=== PATIENT | female | born 1965 | race Caucasian/White ===

== ENCOUNTER 2024-01-03 09:08 | Outpatient (OUT) | payer BC, SELFPAY ==
[2024-01-03 10:12] LABS: Alanine Aminotransferase 39 U/L (14-59); Albumin Globulin Ratio 1.2; Albumin Level 3.5 g/dL (3.4-5.0); Alkaline Phosphatase 102 U/L (46-116); Anion Gap 11.6; Aspartate Amino Transferase 19 U/L (15-37); Bilirubin Total 0.5 mg/dL (0.2-1.0); Carbon Dioxide 28.6 mmol/L (21.0-32.0); Chloride 106 mmol/L (98-107); Chol HDL Ratio 5.4; Cholesterol 239 mg/dL (<=200); Estimated GFR (African America >60 (>=60); Estimated GFR (Non-African Ame 57 (>=60); Free T3 2.45 pg/mL (2.18-3.98); Glucose 102 mg/dL (74-106); HDL Cholesterol 44 mg/dL (40-60); Potassium 4.2 mmol/L (3.5-5.1); Sodium 142 mmol/L (136-145); Thyroid Stimulating Hormone 0.889 uIU/mL (0.358-3.740); Total Protein 6.5 g/dL (6.4-8.2); Triglycerides 196 mg/dL (<=150); VLDL CHOLESTEROL 39.2 mg/dL
[2024-01-03 10:40] LABS: Estimated Average Glucose 117 mg/dL; Glycohemoglobin A1C 5.7 % (4.5-6.2)
[2024-01-03 10:41] LABS: Basophils Percent Auto 0.7 % (0.2-2.0); Eosinophils Absolute Auto 0.1 10^3/uL (0.0-0.7); Eosinophils Percent Auto 2.2 % (0.9-7.0); Hematocrit 41.5 % (36.0-48.0); Immature Granulocytes Abs Auto 0.05 10^3/uL (0.00-0.03); Immature Granulocytes Pct Auto 1.1 % (0.0-0.5); Lymphocytes Absolute Auto 1.5 10^3/uL (1.2-3.8); Lymphocytes Percent Auto 33.6 % (20.5-60.0); Mean Corpuscular HGB Conc 31.3 g/dL (29.9-35.2); Mean Corpuscular Hemoglobin 29.1 pg (26.7-34.0); Mean Platelet Volume 10.5 fL (9.5-13.5); Monocytes Absolute Auto 0.4 10^3/uL (0.3-0.8); Monocytes Percent Auto 8.6 % (1.7-12.0); Neutrophils Absolute Auto 2.5 10^3/uL (1.4-6.5); Neutrophils Percent Auto 53.8 % (43.0-75.0); Platelet Count 200 10^3/uL (150-450); Red Blood Count 4.46 10^6/uL (4.20-5.40); Red Cell Distribution Width 13.1 % (11.0-15.0); White Blood Count 4.6 10^3/uL (4.0-11.0)
== END 2024-01-03 09:09 | disposition home or self-care (01) ==
LOC: LAB 09:10
PROVIDERS: PCP Family Medicine; Visit Provider Family Medicine
DX: Z00.00 Encounter for general adult medical examination without abnormal findings (principal); R53.83 Other fatigue
CPT/HCPCS: 36415; 80053; 80061; 83036; 84436; 84443; 84481; 85025

== ENCOUNTER 2024-06-15 14:04 | Outpatient (OUT) | payer BC, SELFPAY ==
--- NOTE | 2024-06-15 14:14 | CT_ITS ---
The [address] [address] Patient Name: JOBY KUHN MRN: [id number] date: 1965 Sex: F Assigned Patient Location: LAB Current Patient Location: LAB Accession/Order Number: [id number] Exam Date: 06/15/2024 14:30 Report Date: 06/15/2024 15:22 At the request of: CHRISTI RAND Procedure: CT angio chest EXAMINATION: CT angio chest HISTORY: COVID 19, Dyspnea On Exertion COMPARISON: No relevant comparison available. TECHNIQUE: Multi-planar CT images were created with IV contrast. Axial, Coronal, and Sagittal images. Dose reduction techniques were achieved by using automated exposure control and/or adjustment of mA and/or kV according to patient size and/or use of iterative reconstruction technique. 3-D reconstruction was performed on a separate workstation. FINDINGS: VASCULATURE: No pulmonary embolism or abnormal opacity. LUNGS: No visible pulmonary disease. PLEURA: No mass, effusion, or pneumothorax. MIRIAM: No mass or adenopathy. MEDIASTINUM: No mass or adenopathy. CARDIAC: No enlargement, pericardial effusion, or pericardial thickening. AORTA: No aneurysm or dissection. CHEST WALL: No mass or axillary adenopathy. BONES: No bone lesion or fracture. LIMITED ABDOMEN: No suspicious findings. Limited images of the upper abdomen. OTHER: Negative. CT/CT angio chest IMPRESSION: 1. No pulmonary embolism. 2. No pulmonary infiltrates or acute/suspicious findings to account for patient's symptoms. Electronically authenticated by: ABEAN WARNER Date: 06/15/2024 15:22
[2024-06-15 14:21] LABS: Estimated GFR (African America >60 (>=60); Estimated GFR (Non-African Ame 50 (>=60)
== END 2024-06-15 14:05 | disposition home or self-care (01) ==
LOC: LAB 14:05
PROVIDERS: PCP Family Medicine; Visit Provider Family Medicine
DX: Z01.812 Encounter for preprocedural laboratory examination (principal); Z01.818 Encounter for other preprocedural examination; U07.1 COVID-19; R06.09 Other forms of dyspnea
CPT/HCPCS: 36415; 71275; 82565; Q9967

== ENCOUNTER 2025-01-20 19:50 | Observation (INO) | payer BC, SELFPAY ==
[2025-01-20 19:53] VITALS: BP 172/98; PULSE 68; TEMP 36.6; O2SAT 73; BMI 35.7
--- NOTE | 2025-01-20 20:12 | ED_ITS ---
HPI - Chest Pain General Chief Complaint: Chest Pain Stated Complaint: CHEST PAINS Time Seen by Provider: 01/20/25 20:11 Source: patient Mode of arrival: Wheelchair Limitations: no limitations History of Present Illness HPI narrative: Lightheaded and dizzy last night. She felt like she was going to pass out. She was rubbing her husbands legs. Head spinning and arms were numb. This lasted 10 minutes. Never happened before. She said it went away and she thought she was alright. Just before 19:00 felt pressure in her center of her chest. Bra strap felt like it was choking her. Pain pressure-like at 8/10. Pain in the right arm and left jaw. Fingers are tingly. Short of breath. Pain also in the middle of shoulder blades and right shoulder. 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 No daily ASA. Headache, top of head was going to explode. Currently the headache is a 2/10. No medications SURVEYOR'S ASSISTANT No pain with eating PCP: Dr. Ohara Combatant Diver Officer: none Stress test: a couple years ago Nuclear stess test a couple years ago at the [facility], normal Risk: HTN, maternal and paternal grandmothers with CAD. SxHx: cholecystectomy, appendectomy , tonsillectomy, hysterectomy FMhx: mom breast cancer and thyroid issues. no smoke or vape Related Data Home Medications ?Medication ?Instructions ?Recorded ?Confirmed lisinopril 40 mg tablet mg 01/20/25 Allergies Allergy/AdvReac Type Severity Reaction Status Date / Time hydrochlorothiazide Allergy Severe Weakness Verified 01/20/25 20:09 hydromorphone (From Dilaudid) Allergy Severe Anaphylaxis Verified 01/20/25 20:09 tree nut Allergy Severe Anaphylaxis Verified 01/20/25 20:09 Review of Systems ROS Status of ROS 10 or more systems reviewed and unremark able except as noted in history and below [facility] PFS Social History Little interest or pleasure in doing things: not at all Feeling down, depressed, or hopeless: not at all Exam Narrative Exam Narrative: Prior to examining the patient, I have washed with hospital approved and provided Antiseptic Hand Product Manager [employer] and have also applied gloves.? Prior to touching the patient, I asked for consent to examine the patient.? General: Alert and oriented, well nourished, mild distress. Eye: PERRL, EOMI, normal conjunctiva. HENT: Normocephalic, normal hearing, moist oral mucosa, no scleral icterus, no sinus tenderness. Neck: Supple, non-tender, no carotid bruits, no JVD, no lymphadenopathy. Lungs: Clear to auscultation and percussion, non-labored respiration. Heart: Normal rate, regular rhythm, +2/6 murmur, gallop or edema. Abdomen: Soft, non-tender, non-distended, normal bowel sounds, no masses. Musculoskeletal: Normal range of motion and strength, no tenderness or swelling. Skin: Skin is warm, dry and pink, no rashes or lesions. Neurologic: Awake, alert, and oriented X3, CN II-XII intact. Psychiatric: Cooperative, appropriate mood and affect.? Following the conclusion of the examination, I have washed my hands thoroughly after removing examination gloves. Constitutional Vital Signs, click to edit/add: Last Vital Signs Temp 97.8 F 01/20/25 19:53 Pulse 68 01/20/25 19:53 Resp 17 01/20/25 19:53 BP 172/98 H 01/20/25 19:53 Pulse Ox 100 01/20/25 20:16 O2 Del Method Room Air 01/20/25 20:16 Course Course Hospital Course: The patient is a 59-year-old female presenting to the emergency department for chest pain that radiates to her right arm and the middle of her back. It was associated with some shortness of breath and nausea. Patient was having an excessive amount of pain. She was given morphine for analgesic management. She was also given aspirin. CBC revealed no evidence of anemia or leukocytosis. Comp is metabolic panel revealed no electrolyte, kidney, or liver dysfunction. Troponin x 2 high- sensitivity were negative. Patient had a CT a of the chest which revealed no pulmonary embolism, no aneurysm, or no dissection. Reevaluation(s) Reevaluation #1: Patient's symptoms have improved. She only feels mild discomfort in her right arm at this time. She rates it at a 2 out of 10. Time: 23:13 Consultations Consultation #1: Hospital is nurse practitioner called and reviewed the case in the. She did agree to accept the observation admission of the patient for chest. Time: 23:13 Vital Signs Vital signs: Vital Signs Temperature 97.8 F 01/20/25 19:53 Pulse Rate 68 01/20/25 19:53 Respiratory Rate 17 01/20/25 19:53 Blood Pressure 172/98 H 01/20/25 19:53 Pulse Oximetry 73 L 01/20/25 19:53 Oxygen Delivery Method Room Air 01/20/25 19:53 Temperature 97.8 F 01/20/25 19:53 Pulse Rate 68 01/20/25 19:53 Respiratory Rate 17 01/20/25 19:53 Blood Pressure 172/98 H 01/20/25 19:53 Pulse Oximetry 100 01/20/25 20:16 Oxygen Delivery Method Room Air 01/20/25 20:16 MDM - Chest Pain MDM Narrative Medical decision making narrative: Patient is a 59-year-old female presenting to the emergency department for chest pain. The patient's heart score 5 points. Patient was seen for analgesic management. Patient appears nontoxic and in no acute distress but due to her symptoms we will admit her to the hospital for observation. Differential Diagnosis Differential diagnosis: Likely pneumothorax, stable angina, unstable angina pectoris, atypical chest pain, st elevation myocardial infarction, costochondritis, chest pain and biliary colic Medical Records Data Attestation: I reviewed the patient's medical records. Lab Data Attestation: I reviewed the patient's lab results. Labs: Lab Results 01/20/25 01/20/25 Range/Units 20:05 22:10 WBC 7.0 (4.0-11.0) 10^3/uL RBC 4.59 (4.20-5.40) 10^6/uL Hgb 13.8 (12.0-16.0) g/dL Hct 41.9 (36.0-48.0) % MCV 91.3 (81.0-99.0) fL MCH 30.1 (26.7-34.0) pg MCHC 32.9 (29.9-35.2) g/dL RDW 13.5 (11.0-15.0) % Plt Count 244 (150-450) 10^3/uL MPV 10.3 (9.5-13.5) fL Neut % (Auto) 54.9 (43.0-75.0) % Lymph % (Auto) 34.3 (20.5-60.0) % Anderson % (Auto) 8.7 (1.7-12.0) % Eos % (Auto) 1.1 (0.9-7.0) % Baso % (Auto) 0.6 (0.2-2.0) % Neut # (Auto) 3.8 (1.4-6.5) 10^3/uL Lymph # (Auto) 2.4 (1.2-3.8) 10^3/uL Anderson # (Auto) 0.6 (0.3-0.8) 10^3/uL Eos # (Auto) 0.1 (0.0-0.7) 10^3/uL Baso # (Auto) 0.0 (0.0-0.1) 10^3/uL Abs Immat Gran (auto) 0.03 (0.00-0.03) 10^3/uL Imm/Tot Granulo (auto) 0.4 (0.0-0.5) % Sodium 137 (136-145) mmol/L Potassium 3.8 (3.5-5.1) mmol/L Chloride 103 (98-107) mmol/L Carbon Dioxide 28.2 (21.0-32.0) mmol/L Anion Gap 9.6 BUN 18.0 (7.0-18.0) mg/dL Creatinine 1.02 (0.55-1.02) mg/dL Est GFR ( Amer) >60 (>=60 mL/min/1.73m^2) Est GFR (Non-Af Amer) 55 L (>=60 mL/min/1.73m^2) BUN/Creatinine Ratio 17.6 Glucose 114 H (74-106) mg/dL Calcium 9.1 (8.5-10.1) mg/dL Total Bilirubin 0.4 (0.2-1.0) mg/dL AST 21 (15-37) U/L ALT 50 (14-59) U/L Alkaline Phosphatase 131 H (46-116) U/L Troponin I High Sens 5.9 5.8 (4.0-51.3) pg/mL Total Protein 7.1 (6.4-8.2) g/dL Albumin 4.1 (3.4-5.0) g/dL Globulin 3.0 g/dL Albumin/Globulin Ratio 1.4 Lipase 25.0 (16.0-77.0) U/L Imaging Data CT scan - chest: Attestation: I have reviewed the pertinent imaging results. Radiologist's impression: Board-certified radiologist revealed no evidence for pulmonary embolism there is no filling defect of the pulmonary arteries to suggest PE. The thoracic aorta appears in normal caliber. Heart was mildly enlarged. No pericardial or pleural effusion. No pneumothorax. No pulmonary consolidation. No acute osseous abnormality evident. ECG Data Attestation: I personally reviewed and interpreted this ECG as follows: ECG interpretation date: 01/20/25 ECG interpretation time: 20:01 Interpretation: Patient's EKG reveals a sinus rhythm with a ventricular of 71 bpm. The TX interval and QRS duration within normal is. QTc is not prolonged. [place] is normal. No evidence of ST segment elevation or depression suggestive of infarction or ischemia. Summary: Normal EKG. Discharge Plan Discharge Chief Complaint: Chest Pain Clinical Impression: Chest pain Patient Disposition: Admitted as Observation Time of Disposition Decision: 23:20 Condition: Fair
[2025-01-20 20:16] VITALS: O2SAT 100
--- NOTE | 2025-01-20 20:25 | ECG_ITS ---
The [facility] Test Date: 2025-01-20 Pat Name: JOBY KUHN Department: Room: - Gender: Female Pharmacognosist: : 1965 Requested By: [id number] Order Number: [id number] Reading MD: FAUSTINO ALEMAN M.D. Measurements Intervals [place] Rate: 71 P: 270 [place]: 136 QRS: -23 QRSD: 84 T: 60 QT: 380 QTc: 403 Interpretive Statements ECTOPIC ATRIAL RHYTHM 7202 Moderate left axis deviation 9140 abnormal rhythm ECG No previous ECG available for comparison Electronically Signed On 01-21-2025 7:46:05 EDT by FAUSTINO ALEMAN M.D.
[2025-01-20 20:31] LABS: Basophils Percent Auto 0.6 % (0.2-2.0); Eosinophils Absolute Auto 0.1 10^3/uL (0.0-0.7); Eosinophils Percent Auto 1.1 % (0.9-7.0); Hematocrit 41.9 % (36.0-48.0); Hemoglobin 13.8 g/dL (12.0-16.0); Immature Granulocytes Abs Auto 0.03 10^3/uL (0.00-0.03); Immature Granulocytes Pct Auto 0.4 % (0.0-0.5); Lymphocytes Absolute Auto 2.4 10^3/uL (1.2-3.8); Lymphocytes Percent Auto 34.3 % (20.5-60.0); Mean Corpuscular HGB Conc 32.9 g/dL (29.9-35.2); Mean Corpuscular Hemoglobin 30.1 pg (26.7-34.0); Mean Corpuscular Volume 91.3 fL (81.0-99.0); Mean Platelet Volume 10.3 fL (9.5-13.5); Monocytes Absolute Auto 0.6 10^3/uL (0.3-0.8); Monocytes Percent Auto 8.7 % (1.7-12.0); Neutrophils Absolute Auto 3.8 10^3/uL (1.4-6.5); Neutrophils Percent Auto 54.9 % (43.0-75.0); Platelet Count 244 10^3/uL (150-450); Red Blood Count 4.59 10^6/uL (4.20-5.40); Red Cell Distribution Width 13.5 % (11.0-15.0)
[2025-01-20 20:44] LABS: Alanine Aminotransferase 50 U/L (14-59); Albumin Globulin Ratio 1.4; Albumin Level 4.1 g/dL (3.4-5.0); Alkaline Phosphatase 131 U/L (46-116); Anion Gap 9.6; Aspartate Amino Transferase 21 U/L (15-37); BUN Creatinine Ratio 17.6; Bilirubin Total 0.4 mg/dL (0.2-1.0); Calcium 9.1 mg/dL (8.5-10.1); Carbon Dioxide 28.2 mmol/L (21.0-32.0); Chloride 103 mmol/L (98-107); Estimated GFR (African America >60 (>=60 mL/min/1.73m^2); Estimated GFR (Non-African Ame 55 (>=60 mL/min/1.73m^2); Glucose 114 mg/dL (74-106); Potassium 3.8 mmol/L (3.5-5.1); Sodium 137 mmol/L (136-145); Total Protein 7.1 g/dL (6.4-8.2)
[2025-01-20] MEDS: MORPHINE SULFATE 4 MG/ML VIAL IV (20:44)
[2025-01-20] MEDS: ASPIRIN 81 MG TAB.CHEW 324 MG PO (20:44)
[2025-01-20] MEDS: ONDANSETRON PF 4 MG/2 ML VIAL IV (20:44)
[2025-01-20 20:45] LABS: Troponin I High Sensitivity 5.9 pg/mL (4.0-51.3)
[2025-01-20 22:41] LABS: Troponin I High Sensitivity 5.8 pg/mL (4.0-51.3)
[2025-01-20 23:11] VITALS: BP 154/88; PULSE 59; TEMP 36.5; O2SAT 98
[2025-01-21] VITALS (11 sets, daily range): BP systolic 100–120; BP diastolic 62–78; PULSE 58–84; TEMP 36.4–36.8; O2SAT 92–98; BMI 36.5
[2025-01-21] MEDS: ACETAMINOPHEN 325 MG TABLET 650 MG PO ×2 (02:08→06:12)
--- NOTE | 2025-01-21 06:00 | ECG_ITS ---
The [facility] Test Date: 2025-01-21 Pat Name: JOBY KUHN Department: Room: [facility] Gender: Female Chief Nurse Anesthetist: : 1965 Requested By: [id number] Order Number: [id number] Reading MD: FAUSTINO ALEMAN M.D. Measurements Intervals [place] Rate: 64 P: -1 GA: 182 QRS: -27 QRSD: 88 T: 61 QT: 419 QTc: 433 Interpretive Statements SINUS RHYTHM BORDERLINE LEFT AXIS DEVIATION [QRS AXIS < -20] Compared to ECG 01/20/2025 20:00:39 Ectopic atrial rhythm no longer present Electronically Signed On 01-21-2025 7:50:56 EDT by FAUSTINO ALEMAN M.D.
[2025-01-21 06:17] LABS: Hematocrit 38.2 % (36.0-48.0); Hemoglobin 12.2 g/dL (12.0-16.0); Mean Corpuscular HGB Conc 31.9 g/dL (29.9-35.2); Mean Corpuscular Hemoglobin 29.4 pg (26.7-34.0); Mean Platelet Volume 10.1 fL (9.5-13.5); Platelet Count 195 10^3/uL (150-450); Red Blood Count 4.15 10^6/uL (4.20-5.40); Red Cell Distribution Width 13.6 % (11.0-15.0); White Blood Count 5.2 10^3/uL (4.0-11.0)
[2025-01-21 06:33] LABS: Estimated Average Glucose 120 mg/dL; Glycohemoglobin A1C 5.8 % (4.5-6.2)
[2025-01-21 06:37] LABS: Troponin I High Sensitivity 7.6 pg/mL (4.0-51.3)
[2025-01-21 06:42] LABS: Chol HDL Ratio 5.4; Cholesterol 209 mg/dL (<=200); HDL Cholesterol 39 mg/dL (40-60); Thyroid Stimulating Hormone 1.505 uIU/mL (0.358-3.740); Triglycerides 217 mg/dL (<=150); VLDL CHOLESTEROL 43.4 mg/dL
--- NOTE | 2025-01-21 07:00 | CA_ITS ---
Patient Name: JOBY KUHN MR#: [id number] : 1965 Exam Date: 01/21/2025 Ordering Doctor: RUDOLPH HARMON ECHOCARDIOGRAM REPORT PROCEDURE: CA ECHO DOPPLER COMPLETE INDICATIONS: Chest pain COMPARISON: None. DESCRIPTION: COMPLETE ECHOCARDIOGRAM Real-time transthoracic echocardiography with 2D, M-mode, spectral and color flow Doppler performed. QUALITY: Technical quality was good. LEFT VENTRICLE: Normal chamber size. Mild concentric left ventricular hypertrophy. Normal systolic function. LV EF: Normal left ventricular ejection fraction, (>55%). DIASTOLIC: Diastolic function is indeterminate. ATRIAL SEPTUM: LEFT ATRIUM: Normal chamber size. RIGHT ATRIUM: Normal chamber size. RIGHT VENTRICLE: Mild chamber dilatation. Normal right ventricular systolic function. TRICUSPID VALVE: Normal mobility and thickness. No stenosis with mild regurgitation. No evidence of pulmonary hypertension. RVSP 33 mmHg MITRAL VALVE: Normal mobility and thickness. No evidence of mitral valve stenosis. Mild mitral annular calcification. No mitral regurgitation. AORTIC VALVE: Normal trileaflet appearance. Mildly calcified aortic valve. Normal leaflet mobility. No evidence of aortic valve stenosis. No aortic regurgitation. AORTIC ROOT: Normal diameter and appearance, measuring 3.2 cm. Ascending aorta is normal in size, measuring 2.8 cm. PULMONIC VALVE: Normal thickness and mobility. No stenosis. Trivial regurgitation. PERICARDIUM: No evidence of pericardial effusion. IVC: IVC is normal in size, does not fully collapse. PLEURA: CONCLUSION: 1. Mild concentric left ventricular hypertrophy with normal systolic function. Estimated LVEF is 55 to 60%. 2. Mildly dilated right ventricle with normal systolic function. 3. Mild tricuspid regurgitation. 4. Normal right-sided pressures. 5. No pericardial effusion. Adult Echocardiography Procedure Report Left Ventricle LVEDD (3.7 - 5.6 cm): 4.33 cm LVESD (2.2 - 4.0 cm): 2.67 cm LVIVS thickness (0.6 - 1.2 cm): 1.27 cm LVPW thickness (0.5 - 1.0 cm): 1.29 cm e': 0.08 m/s E - e': 10.43 LVOT Max Gradient: 2.25 mm[Hg] LVOT Area (cm2): 0.75 m/s Peak Velocity (LVOT): 0.75 m/s Mean Velocity (LVOT): 0.50 m/s LVOT Diameter 2.10 cm Left Atrium LA Volume Index (2D A2C): 26.83 ml/m2 Left Atrium Systolic Dimension: 4.05 cm Mitral Valve MV E to A Ratio: 1.31 Mitral Valve A-Wave Peak Velocity: 0.61 m/s Mitral Valve E-Wave Peak Velocity: 0.80 m/s Right Ventricle Aorta AO Root Diam: 3.23 cm Ascending Ao Diam: 2.79 cm Aortic Valve AoV Area (Peak Dixon): 2.19 cm2, 2.19 cm2 AoV Area (VTI): 2.20 cm2, 2.20 cm2 Peak Velocity(Antegrade Flow): 1.19 m/s Peak Gradient(Antegrade Flow): 5.68 mm[Hg] Mean Velocity(Antegrade Flow): 0.83 m/s Mean Gradient(Antegrade Flow): 3.11 mm[Hg] Velocity Time Integral: 27.42 cm Tricuspid Valve Peak Velocity (Regurgitant Flow): 2.50 m/s Pulmonic Valve Mean Gradient: 1.82 mm[Hg] Mean Velocity: 0.64 m/s Peak Velocity: 0.91 m/s, 0.82 m/s Peak Gradient: 2.70 mm[Hg], 3.31 mm[Hg] Right Atrium Right Atrium Systolic Pressure: 57.48 ml, 57.48 ml Dictated by: Tony Gracia M.D. on 01/21/2025 at 13:32 Approved by: Tony Gracia M.D. on 01/21/2025 at 13:36
--- NOTE | 2025-01-21 08:18 | P.HP_ITS ---
HPI H&P: HPI History of Present Illness Chief complaint: CHEST PAIN Narrative: Patient had an episode the day before but lasted about 10 minutes where she just felt lightheaded and some heaviness to and heaviness to her arms but no chest pain then, yesterday had an episode and then, yesterday had an episode last about an hour, chest pressure, radiating to back, a little bit of nausea, no diaphoresis, when I discussed with patient has had little she has had little episodes of this increasing over the last few weeks, but anxiety has been elevated also blood pressure at home systolic has been okay but the diastolics been in the 90s, currently symptom-free Opioid HPI Opioid Management Most Recent Pain and Opioid Data: Last Pain Scale 3 Today, 06:12 Last Pain Assessment Today, 01:00 Last ORT Total Score 1 Today, 00:51 Last ORT Risk Category Low Risk Today, 00:51 Review of Systems ROS Status of ROS 10 or more systems reviewed and unremark able except as noted in history and below PFSH PFSH Social History Highest level of school completed/degree received: Bachelor's degree Little interest or pleasure in doing things: not at all Feeling down, depressed, or hopeless: not at all Meds Home Medications and Allergies Home Medications ?Medication ?Instructions ?Recorded ?Confirmed ?Type lisinopril 40 mg tablet 40 mg PO DAILY 01/20/2502/10 History desvenlafaxine succinate 50 mg 50 mg PO DAILY 01/21/25 01/21/25 History tablet,extended release 24 hr lansoprazole 30 mg capsule,delayed 30 mg PO DAILY 02/1001/21/25 History release Allergies Allergy/AdvReac Type Severity Reaction Status Date / Time hydrochlorothiazide Allergy Severe Weakness Verified 01/20/25 20:09 hydromorphone (From Dilaudid) Allergy Severe Anaphylaxis Verified 01/20/25 20:09 tree nut Allergy Severe Anaphylaxis Verified 01/20/25 20:09 Exam Constitutional Vital Signs, click to edit/add: Last Vital Signs Temp 97.7 F 01/21/25 06:10 Pulse 81 01/21/25 07:52 Resp 18 01/21/25 06:10 BP 120/78 01/21/25 06:10 Pulse Ox 96 01/21/25 06:10 O2 Del Method Room Air 01/21/25 06:10 Documenting provider has reviewed patient's vital signs: yes Common normals: no apparent distress Chest Common normals: inspection of chest normal and palpation of chest normal Respiratory Common normals: normal respiratory effort, no retractions, no use of accessory muscles and clear to auscultation bilaterally Cardio Common normals: regular rate, regular rhythm and no murmurs GI Common normals: Normal to inspection, nondistended, normoactive bowel sounds present, soft to palpation and non-tender Extremity Common normals: normal to inspection, full ROM and no clubbing, cyanosis or edema Results Labs Labs: Short CBC 01/20/25 01/21/25 Range/Units 20:05 06:01 WBC 7.0 5.2 (4.0-11.0) 10^3/uL Hgb 13.8 12.2 (12.0-16.0) g/dL Hct 41.9 38.2 (36.0-48.0) % Plt Count 244 195 (150-450) 10^3/uL BMP 01/20/25 20:05 Sodium 137 Potassium 3.8 Chloride 103 Carbon Dioxide 28.2 BUN 18.0 Creatinine 1.02 Glucose 114 H Calcium 9.1 Liver Function 01/20/25 Range/Units 20:05 Total Bilirubin 0.4 (0.2-1.0) mg/dL AST 21 (15-37) U/L ALT 50 (14-59) U/L Alkaline Phosphatase 131 H (46-116) U/L Albumin 4.1 (3.4-5.0) g/dL Assessment and Plan Assessment and Plan (1) Hypertension: (2) History of cholecystectomy: (3) Generalized anxiety disorder: (4) Hypercholesterolemia: (5) Hypertriglyceridemia: (6) Hypertensive urgency: Plan Admission findings: Patient was a good history of accelerating angina, may be stress and blood pressure related, she had elevated blood pressure on admission with chest pain resolved pain resulting in hypertensive urgency Hypertensive urgency with resulting chest pain-blood pressure better this morning, troponins are negative, EKG without acute changes, if echocardiogram shows a good ejection fraction patient would prefer to be discharged to home with outpatient workup, change blood pressure medication to beta-parag and Imdur Generalized anxiety disorder-increase Pristiq Hypercholesterolemia-borderline diet management Admission status: Patient placed in observation bed, medically necessary treatment likely to only span 1 midnight, maintain observational status
[2025-01-21] MEDS: ASPIRIN 81 MG TABLET.DR PO (08:49)
[2025-01-21] MEDS: PANTOPRAZOLE SODIUM 40 MG TABLET.DR PO (08:49)
[2025-01-21] MEDS: METOPROLOL TARTRATE 25 MG TABLET PO (08:49)
[2025-01-21] MEDS: ISOSORBIDE MONONITRATE 30 MG TAB.ER.24H PO (08:49)
[2025-01-21] MEDS: DESVENLAFAXINE SUCCINATE 50 MG TAB.ER.24H 100 MG PO (08:49)
--- NOTE | 2025-01-22 13:36 | CM.DCFOLLOWU ---
Person spoke with: patient How are you feeling? well How is your pain?none Did you understand your discharge instructions? yes Do you have any questions about your discharge instructions? no Were you given any prescriptions at discharge? yes Were you able to get your prescriptions filled?yes Do you understand how to take your medications as ordered?yes Do you have any questions about your follow up appointment and do you plan to keep your follow up appointment? no questions, reviewed follow up Is there anything else that you would like to discuss?no Questions/Comments/Concerns/Other:none
== END 2025-01-21 13:35 | disposition home or self-care (01) ==
LOC: ER 23:20 → MS 01-21 00:51
PROVIDERS: Registered Nurse; Admitting Provider Family Medicine; Emergency Provider Emergency Medicine; PCP Family Medicine; Visit Provider Family Medicine
DX: R07.9 Chest pain, unspecified (principal); I16.0 Hypertensive urgency; I10 Essential (primary) hypertension; Z90.49 Acquired absence of other specified parts of digestive tract; Z90.710 Acquired absence of both cervix and uterus; Z80.3 Family history of malignant neoplasm of breast; R06.02 Shortness of breath; R11.0 Nausea; F41.1 Generalized anxiety disorder; E78.00 Pure hypercholesterolemia, unspecified; E78.1 Pure hyperglyceridemia
CPT/HCPCS: 36415; 71275; 80053; 80061; 83036; 83690; 84443; 84484; 85025; 85027; 93005; 93306; 96374; 96375; 99285; G0378; J2270; J2405; Q9967

== ENCOUNTER 2025-02-26 11:02 | Outpatient (OUT) | payer BC, SELFPAY ==
--- NOTE | 2025-02-26 | PCN_ITS ---
CARDIAC STRESS TEST Requesting Physician: Ruben Ohara M.D. Procedure Date: 02/26/2025 REASON FOR TEST: Chest pain. Patient presented for treadmill nuclear stress test. At baseline, the patient?s heart rate was 78 beats per minute, in sinus rhythm, with a resting blood pressure of 130/84 mm/Hg. The patient exercised for 5 minutes and 4 seconds with Clif protocol, reaching stage 2 and achieving 7 METS. The reason for termination was target achieved with 97% of expected heart rate. The heart rate recovery was normal with no evidence of any chronotropic insufficiency, with a blood pressure that is normal and expected for the exercise. EKG with the exercise did not reveal any evidence of ischemia. Occasional PVCs were noted, which there was left bundle morphology, which appeared to originate from the left ventricle area. IMPRESSION: 1. No EKG evidence of ischemia seen with stress test. 2. Good functional heart rate recovery and blood pressure response with exercise. 3. Occasional PVCs noted with exercise from left ventricle origin. 4. Khan treadmill score overall greater than 3 indicates a lower likelihood of future cardiac events. 5. Perfusion study will be dictated separately by Radiology. TIFFANY
--- NOTE | 2025-02-26 10:45 | NM_ITS ---
Patient Name: JOBY KUHN MR#: [id number] : 1965 Exam Date: 02/26/2025 Ordering Doctor: DR CHRISTI RAND . RADIOLOGY REPORT PROCEDURE: NM TASHA PERF SPECT REST STR COMPARISON: None. INDICATIONS: CHEST PAIN TECHNIQUE: Exam Description: Rest/Stress one day protocol gated SPECT Rest Imagin.2 mCi Tc-99m Cardiolite IV on 02/26/2025 Stress Imaging 30.1 mCi Tc-99m Cardiolite IV on 02/26/2025 Exercise Protocol: Clif Heart Rate (bpm): Rest: 78 Max: 155 PMHR: 97 Blood Pressure: Rest: 130/84 Max: 158/84 Exercise Time: Minutes: 5 Seconds: 04 Stage Reached: Stage: 2 Mets 7.0 Symptoms: Rest and peak stress ECG findings were pending and the EKG portion of the study was pending per attending physician [facility] . For more details please see separate cardiac stress test report. FINDINGS: QUALITY OF STUDY: Good PERFUSION DEFECT: None LOCATION: SIZE: SEVERITY: TYPE: WALL MOTION: Normal LV SIZE: 78 mL. TID / TCD: 0.7 LVEF: Calculated EF 69%. SUMMARY: Normal myocardial perfusion imaging study CONCLUSION: Normal myocardial perfusion stress test without ischemia or infarct Normal left ventricular systolic function, ejection fraction 69% No transient ischemic dilatation, TID 0.7 EKG portion of the stress test is reported separately Dictated by: Magdalena Pugh MD on 02/26/2025 at 19:40 Approved by: Magdalena Pugh MD on 02/26/2025 at 19:43
--- OUTSIDE RECORDS SUMMARY | 2025-02-26 11:04 | XMS_ITS | Encounter Summary ---
Author Organization [facility] Address [facility] [place] [address] Care Team Providers Care Transfer Engineer Name Role Phone Ruben Ohara MD Primary Care Provider [phone] Source Comments In the event this information is protected by the Federal Confidentiality of Alcohol and Drug AbusePatient Records regulations: The Federal rules restrict any use of the information to criminally investigate or prosecute any alcohol or drug abuse patient.[facility] Encounter Details Date Type Department Care Team (Late st Contact Info) Description 12/29/2022 [facility] [place] [address] J Carlos Polk MD [address] [place] [address] Bloodwork Social History Tobacco Use Types Packs/Day Years Used Date Smoking Tobacco: Never Smokeless Tobacco: Never Alcohol Use Standard Drinks/Week Comments Yes 0 (1 standard drink = 0.6 oz pur e alcohol) 1 glass a month PHQ-2 Answer Date Recorded PHQ-2 score 3 12/13/2022 Area Deprivation Index Answer Date Darwin rded National Score (1-100), lower number is lower ri sk 70 12/07/2022 State Score (1-10), lower number is lower risk N ot on file 12/07/2022 Data from: https://www.neighborhoodatlas.[facility]/. Last address used for calculation [place] 12/07/2022 Comments No Sex and Gender Information Value Date Recorded Sex Assigned at Not on file Legal Sex Female 10:29 AM EDT Gender Identity Not on file Sexual Orientation Not on file documented as of this encounter Functional Status * Are you deaf or do you have serious difficulty hearing? Answer Date of Assessment Author No 04/23/2015 11:40 AM EDT Tien noble Ceresa * Are you blind or do you have serious difficulty seeing, even when wearing glasses? Answer Date of Assessment Author No 04/23/2015 11:40 AM EDT Tien noble Ceresa * Do you have serious difficulty walking or climbing stairs? Answer Date of Assessment Author No 04/23/2015 11:40 AM EDT Tien noble Ceresa * Do you have difficulty dressing or bathing? Answer Date of Assessment Author No 04/23/2015 11:40 AM EDT Tien noble Ceresa * Because of a physical, mental, or emotional condition, do you have difficulty doing errands alone such as visiting a doctor's office or shopping? Answer Date of Assessment Author No 04/23/2015 11:40 AM BLAKET Tien noble Ceresa documented as of this encounter Mental Status * Because of a physical, mental, or emotional condition, do you have serious difficulty concentrating, remembering, or making decisions? Answer Entry Date Author No 04/23/2015 11:40 AM Karie Khan documented in this encounter Plan of Treatment Not on file documented as of this encounter Visit Diagnoses Not on filedocumented in this encounter Care Teams Transfer Engineer Relationship Specialty Start Date End Date Ruben Ohara MD PCP - General Family Medicine 05/30/14 documented as of this encounter
--- OUTSIDE RECORDS SUMMARY | 2025-02-26 11:04 | XMS_ITS | Clinical Summary ---
Author Organization [facility] Address [address] [place] [address] Care Team Providers Care Pattern Grader Name Role Phone Unavailable Primary Care Provider Unavailabl e Social History Tobacco Use Types Packs/Day Years Used Date Smoking Tobacco: Never Assessed Comments Unknown Sex and Gender Information Value Date Recorded Sex Assigned at Not on file Legal Sex Female 6:40 PM EDT Gender Identity Not on file Sexual Orientation Not on file Last Filed Vital Signs Vital Sign Reading Time Taken Comments Blood Pressure 138/86 08/23/2018 12:00 PM EST Pulse - - Temperature - - Respiratory Rate - - Oxygen Saturation - - Inhaled Oxygen Concentration - - Weight 96.2 kg (212 lb) 08/23/2018 12:00 PM EST Height 172.7 cm (5' 8 ) 08/23/2018 12:00 PM EST Body Mass Index 32.23 08/23/2018 12:00 PM EST Plan of Treatment Not on file
--- OUTSIDE RECORDS SUMMARY | 2025-02-26 11:04 | XMS_ITS | Encounter Summary ---
Author Organization [facility] Address [address] [place] [address] Care Team Providers Care Threading Machine Feeder Automatic Name Role Phone Ruben Ohara MD Primary Care Provider [phone] Source Comments In the event this information is protected by the Federal Confidentiality of Alcohol and Drug AbusePatient Records regulations: The Federal rules restrict any use of the information to criminally investigate or prosecute any alcohol or drug abuse patient.[facility] Encounter Details Date Type Department Care Team (Late st Contact Info) Description 12/10/2022 Get Medical Advice Cardiology [address] [phone] Leonardo Galvan MD [address] [phone] Question regarding CBC + DIFF Social History Tobacco Use Types Packs/Day Years [...] N ot on file 12/07/2022 Data from: https://www.neighborhoodatlas.[facility]/. Last address used for calculation [place] [...] 04/23/2015 11:40 AM EDT Tien noble Ceresa documented as of this encounter Mental Status * Because of a physical, mental, or emotional condition, do you have serious difficulty concentrating, remembering, or making decisions? Answer Entry Date Author No 04/23/2015 11:40 AM OC noble Ceresa documented in this encounter Plan of Treatment Not on file documented as of this encounter Visit Diagnoses Not on filedocumented in this encounter Care Teams Threading Machine Feeder Automatic Relationship Specialty Start Date End Date Ruben Ohara MD PCP - General Family Medicine 05/30/14 documented as of this encounter
--- OUTSIDE RECORDS SUMMARY | 2025-02-26 11:04 | XMS_ITS | Encounter Summary ---
Author Organization [facility] Address [address] [place] [address] Care Team Providers Care Farmworker Turkey Farm Name Role Phone Ruben Ohara MD Primary Care Provider [phone] Source Comments In the event this information is protected by the Federal Confidentiality of Alcohol and Drug AbusePatient Records regulations: The Federal rules restrict any use of the information to criminally investigate or prosecute any alcohol or drug abuse patient.[facility] Encounter Details Date Type Department Care Team (Late st Contact Info) Description 01/22/2023 Patient Msg Cardiology [address] [place] [address] Provider, Ccf Appointment Cancellation Request Social History Tobacco Use Types Packs/Day Years [...] N ot on file 12/07/2022 Data from: https://www.neighborhoodatlas.medicine.[facility].edu/. Last address used for calculation [address] 12/07/2022 Comments No Sex and Gender Information Value Date Recorded Sex Assigned at Not on file Legal Sex Female 10:29 AM EDT Gender Identity Not on file Sexual Orientation Not on file documented as of this encounter Functional Status * Are you deaf or do you have serious difficulty hearing? Answer Date of Assessment Author No 04/23/2015 11:40 AM EDT Tien Emerson a, Ceresa * Are you blind or do you have serious difficulty seeing, even when wearing glasses? Answer Date of Assessment Author No 04/23/2015 11:40 AM EDT Tien M a, Ceresa * Do you have serious difficulty walking or climbing stairs? Answer Date of Assessment Author No 04/23/2015 11:40 AM EDT Tien M a, Ceresa * Do you have difficulty dressing or bathing? Answer Date of Assessment Author No 04/23/2015 11:40 AM EDT Tien M a, Ceresa * Because of a physical, mental, or emotional condition, do you have difficulty doing errands alone such as visiting a doctor's office or shopping? Answer Date of Assessment Author No 04/23/2015 11:40 AM EDT Tien Ki a, Ceresa documented as of this encounter Mental Status * Because of a physical, mental, or emotional condition, do you have serious difficulty concentrating, remembering, or making decisions? Answer Entry Date Author No 04/23/2015 11:40 AM EDT Tien noble, Ceresa documented in this encounter Plan of Treatment Not on file documented as of this encounter Visit Diagnoses Not on filedocumented in this encounter Care Teams Farmworker Turkey Farm Relationship Specialty Start Date End Date Ruben Ohara MD PCP - General Family Medicine 05/30/14 documented as of this encounter
--- OUTSIDE RECORDS SUMMARY | 2025-02-26 11:04 | XMS_ITS | Encounter Summary ---
Author Organization [facility] Address [address] [place] [address] Care Team Providers Care Cotton Buyer Name Role Phone Ruben Ohara MD Primary Care Provider [phone] Source Comments In the event this information is protected by the Federal Confidentiality of Alcohol and Drug AbusePatient Records regulations: The Federal rules restrict any use of the information to criminally investigate or prosecute any alcohol or drug abuse patient.[facility] Encounter Details Date Type Department Care Team (Late st Contact Info) Description 01/22/2023 Patient Msg Cardiology [address] [place] [address] Jeremy Oshea MD [address] [place] [address] Appointment Cancellation Request Social History Tobacco Use [...] N ot on file 12/07/2022 Data from: https://www.neighborhoodatlas.[facility]/. Last address used for calculation Martin [...] on filedocumented in this encounter Care Teams Cotton Buyer Relationship Specialty Start Date End Date Ruben Ohara MD PCP - General Family Medicine 05/30/14 documented as of this encounter
--- OUTSIDE RECORDS SUMMARY | 2025-02-26 11:04 | XMS_ITS | Clinical Summary ---
Author Organization [facility] Address [address] [place] [address] Care Team Providers Care Estimator And Drafter Supervisor Name Role Phone Ruben Ohara MD Primary Care Provider [phone] Allergies Active Allergy Reactions Criticality Noted Date Comments Hydromorphone (Bulk) Anaphylaxis High 06/18/2014 Nut - Unspecified Anaphylaxis High 06/18/2014 Medications desvenlafaxine ER (PRISTIQ) 50 mg 24 hr tablet 2 Active lansoprazole (PREVACID) 30 mg capsule 2 Active lisinopril (ZESTRIL) 40 mg tablet Take 40 mg by mouth once daily. 3 Active aspirin 325 mg tablet Take 325 mg by mouth once daily. Active HYDROCHLOROTHI AZIDE ORAL Take 1 tablet by mouth once daily. Active aminophylline 250 mg/10 mL soln Inject 2 mL intravenously one time only for 1 dose. 2 mL 3 Active Active Problems Problem Noted Date Diagnosed Date Essential (primary) hypertension 09/01/2022 Acute torn meniscus of knee 04/27/2017 Gastroesophageal reflux disease without esophagi tis 04/12/2017 Resolved Problems Problem Noted Date Diagnosed Date Resolved Date Knee pain 06/18/2014 03/16/2017 Family History Medical History Relation Comments No Known Problems Brother Suicide / Suicidal Behaviors Father Multiple Sclerosis Maternal Aunt Brain Cancer Maternal Grandfather Stroke Maternal Grandfather Hypertension Mother Rheumatologic disease No Family History Relation Status Comments Brother Alive Father Maternal Aunt Maternal Grandfather Maternal Grandmother Mother Paternal Grandfather Paternal Grandmother Social History Tobacco Use Types Packs/Day Years Used Date Smoking Tobacco: Never Smokeless Tobacco: Never Tobacco Cessation:Counseling Given: Not Answered Alcohol Use Standard Drinks/Week Comments Yes 0 (1 standard drink = 0.6 oz pur e alcohol) 1 glass a month PHQ-2 Answer Date Recorded PHQ-2 score 3 12/13/2022 Area Deprivation Index Answer Date Darwin rded National Score (1-100), lower number is lower ri sk 70 12/07/2022 State Score (1-10), lower number is lower risk N ot on file 12/07/2022 Data from: https://www.neighborhoodatlas.medicine.[facility]/. Last address used for calculation [address] 12/07/2022 Comments No Sex and Gender Information Value Date Recorded Sex Assigned at Not on file Legal Sex Female 10:29 AM EDT Gender Identity Not on file Sexual Orientation Not on file Last Filed Vital Signs Vital Sign Reading Time Taken Comments Blood Pressure 122/81 12/14/2022 7:09 AM EDT Pulse 81 12/14/2022 7:09 AM EDT Temperature 36.2 C (97.2 F) 04/19/2017 10:45 AM EDT Respiratory Rate 18 04/19/2017 12:30 PM EDT Oxygen Saturation 96% 04/19/2017 12:30 PM EDT Inhaled Oxygen Concentration - - Weight 105.7 kg (233 lb) 12/14/2022 7:09 AM EDT Height 172.7 cm (5' 8 ) 12/14/2022 7:09 AM EDT Body Mass Index 35.43 12/14/2022 7:09 AM EDT Plan of Treatment Health Maintenance Due Date Last Done Comments Annual PCP Team Chronic Disease Visit 1981 Anxiety Screening 1981 BP Controlled (<130/80) 1981 Depression Screening 1981 HIV Screening 1981 Hepatitis C Screening 1981 DTaP,Tdap,Td Vaccine (1 - Tdap) 1982 Cervical Cancer Screening [address] Colonography 2008 Cologuard (FIT-DNA) 2008 Colonoscopy 2008 Colorectal Cancer Screening 2008 Fecal Occult Blood 2008 Lipid Screening 2008 Sigmoidoscopy 2008 Pneumococcal Vaccine: 50+ (1 of 1 - PCV) 2013 Shingrix Vaccine (1 of 2) 2013 Covid-19 Vaccine (1 - season) 2024 Influenza Vaccine (Season Ended) 2025 Diabetes Screening 12/14/2025 12/14/2022, 0 11/29/2022, 06/24/2014 RSV Vaccine (1 - 1-dose 75+ series) 2038 Procedures Procedure Name Priority Date/Time Associated Diagnosis Comments HEMOGLOBIN A1C Routine 12/14/2022 9:38 AM EDT Dizziness from Last 3 Months or Most Recently Relevant to Health Maintenance Results * (ABNORMAL) HGB A1C (12/14/2022 9:38 AM EDT) Hemoglobin A1C 5.7(H) 4.3 - 5.6 % 12/14/2022 5:45 PM EDT [facility] Comment:[place] Diabetes As sociation guidelines indicate that patients with HgbA1c in the range 5.7-6.4% are at increased risk for development of diabetes, and intervention by lifestyle modification may be beneficial. HgbA1c greater or equal to 6.5% is considered diagnostic of diabetes. Estimated Average Glucose 117 mg/dL 12/14/2022 5:45 PM EDT [facility] Comment:eAG: (Estimated aver age glucose) is a calculated value from HgbA1c and is motor vehicle representative of the average blood glucose level in the last 2-3 month period. Blood BLOOD SPECIMEN / Unknown Venipuncture / Unknown 12/14/2022 9:38 AM EDT 12/14/2022 1:09 PM EDT us J Carlos Polk MD LABORATORY Final Result [facility] [address] [address], from Last 3 Months or Most Recently Relevant to Health Maintenance Insurance [employer]UE [employer] PPO Care Teams Estimator And Drafter Supervisor Relationship Specialty Start Date End Date Ruben Ohara MD PCP - General Family Medicine 05/30/14
--- OUTSIDE RECORDS SUMMARY | 2025-02-26 11:04 | XMS_ITS | Encounter Summary ---
Author Organization [facility] Address [address] [place] [address] Care Team Providers Care Mobile Architect Name Role Phone Ruben Ohara MD Primary Care Provider [phone] Source Comments In the event this information is protected by the Federal Confidentiality of Alcohol and Drug AbusePatient Records regulations: The Federal rules restrict any use of the information to criminally investigate or prosecute any alcohol or drug abuse patient.[facility] Encounter Details Date Type Department Care Team (Late st Contact Info) Description 01/22/2023 Patient Msg Cardiology [address] [place] [address] Provider, Ccf Appointment Cancellation Request [...] N ot on file 12/07/2022 Data from: https://www.neighborhoodatlas.medicine.[facility].edu/. Last address used for calculation [address] [...] on filedocumented in this encounter Care Teams Mobile Architect Relationship Specialty Start Date End Date Ruben Ohara MD PCP - General Family Medicine 05/30/14 documented as of this encounter
--- OUTSIDE RECORDS SUMMARY | 2025-02-26 11:04 | XMS_ITS | Encounter Summary ---
Author Organization [facility] Address [address] [place] [address] Care Team Providers Care Cloth Seconds Sorter Name Role Phone Ruben Ohara MD Primary Care Provider [phone] Source Comments In the event this information is protected by the Federal Confidentiality of Alcohol and Drug AbusePatient Records regulations: The Federal rules restrict any use of the information to criminally investigate or prosecute any alcohol or drug abuse patient.[facility] Encounter Details Date Type Department Care Team (Late st Contact Info) Description 01/24/2023 Patient Msg Cardiology [address] [place] [address] Jeremy Oshea MD [address] [place] [address] Appointment Cancellation Request Social History [...] N ot on file 12/07/2022 Data from: https://www.neighborhoodatlas.[facility]/. Last address used for calculation [...] on filedocumented in this encounter Care Teams Cloth Seconds Sorter Relationship Specialty Start Date End Date Ruben Ohara MD PCP - General Family Medicine 05/30/14 documented as of this encounter
--- OUTSIDE RECORDS SUMMARY | 2025-02-26 11:04 | XMS_ITS | Encounter Summary ---
Author Organization [facility] Address [address] [place] [address] Care Team Providers Care Gimp Tacker Name Role Phone Ruben Ohara MD Primary Care Provider [phone] Source Comments In the event this information is protected by the Federal Confidentiality of Alcohol and Drug AbusePatient Records regulations: The Federal rules restrict any use of the information to criminally investigate or prosecute any alcohol or drug abuse patient.[facility] Encounter Details Date Type Department Care Team (Late st Contact Info) Description 01/22/2023 Patient Msg Cardiology [address] [place] [address] Jeremy Oshea MD [address] [place] [address] Appointment Cancellation Request Social History [...] N ot on file 12/07/2022 Data from: https://www.neighborhoodatlas.[facility]/. Last address used for calculation [address] [...] on filedocumented in this encounter Care Teams Gimp Tacker Relationship Specialty Start Date End Date Ruben Ohara MD PCP - General Family Medicine 05/30/14 documented as of this encounter
--- OUTSIDE RECORDS SUMMARY | 2025-02-26 11:04 | XMS_ITS | Encounter Summary ---
Author Organization [facility] Address [address] [place] [address] Care Team Providers Care Quality Assurance/R&D Lab Technician Name Role Phone Ruben Ohara MD Primary Care Provider [phone] Source Comments In the event this information is protected by the Federal Confidentiality of Alcohol and Drug AbusePatient Records regulations: The Federal rules restrict any use of the information to criminally investigate or prosecute any alcohol or drug abuse patient.[facility] Encounter Details Date Type Department Care Team (Late st Contact Info) Description 01/24/2023 Patient Msg Cardiology [address] [place] [address] Provider, Ccf Appointment Cancellation Request [...] on file 12/07/2022 Data from: https://www.neighborhoodatlas.medicine.[facility].edu/. Last address used for calculation [address] [place] 12/07/2022 Comments No Sex and Gender [...] on filedocumented in this encounter Care Teams Quality Assurance/R&D Lab Technician Relationship Specialty Start Date End Date Ruben Ohara MD PCP - General Family Medicine 05/30/14 documented as of this encounter
--- OUTSIDE RECORDS SUMMARY | 2025-02-26 11:04 | XMS_ITS | Encounter Summary ---
Author Organization [facility] Address [address] [place] [address] Care Team Providers Care Cheesemaking Laborer Name Role Phone Ruben Ohara MD Primary Care Provider [phone] Source Comments In the event this information is protected by the Federal Confidentiality of Alcohol and Drug AbusePatient Records regulations: The Federal rules restrict any use of the information to criminally investigate or prosecute any alcohol or drug abuse patient.[facility] Encounter Details Date Type Department Care Team (Late st Contact Info) Description 01/22/2023 Patient Msg Cardiology [address] [place] [address] Provider, Ccf Appointment Cancellation Request [...] N ot on file 12/07/2022 Data from: https://www.neighborhoodatlas.medicine.[facility].edu/. Last address used for calculation [address] [...] on filedocumented in this encounter Care Teams Cheesemaking Laborer Relationship Specialty Start Date End Date Ruben Ohara MD PCP - General Family Medicine 05/30/14 documented as of this encounter
--- OUTSIDE RECORDS SUMMARY | 2025-02-26 11:04 | XMS_ITS | Encounter Summary ---
Author Organization [facility] Address [address] [place] [address] Care Team Providers Care Sawmill Or Timber Yard Worker Name Role Phone Ruben Ohara MD Primary Care Provider [phone] Source Comments In the event this information is protected by the Federal Confidentiality of Alcohol and Drug AbusePatient Records regulations: The Federal rules restrict any use of the information to criminally investigate or prosecute any alcohol or drug abuse patient.[facility] Encounter Details Date Type Department Care Team (Late st Contact Info) Description 01/22/2023 Patient Msg Cardiology [address] [place] [address] Jeremy Oshea MD [address] [place] [address] Appointment Cancellation Request Social History [...] N ot on file 12/07/2022 Data from: https://www.neighborhoodatlas.[facility]/. Last address used for calculation [address] [...] on filedocumented in this encounter Care Teams Sawmill Or Timber Yard Worker Relationship Specialty Start Date End Date Ruben Ohara MD PCP - General Family Medicine 05/30/14 documented as of this encounter
--- OUTSIDE RECORDS SUMMARY | 2025-02-26 11:04 | XMS_ITS | Encounter Summary ---
Author Organization [facility] Address [address] [place] [address] Care Team Providers Care Storage Brine Worker Name Role Phone Ruben Ohara MD Primary Care Provider [phone] Source Comments In the event this information is protected by the Federal Confidentiality of Alcohol and Drug AbusePatient Records regulations: The Federal rules restrict any use of the information to criminally investigate or prosecute any alcohol or drug abuse patient.[facility] Encounter Details Date Type Department Care Team (Late st Contact Info) Description 01/22/2023 Patient Msg Cardiology [address] [place] [address] Jeremy Oshea MD [address] [place] [address] Appointment Cancellation Request Social History [...] N ot on file 12/07/2022 Data from: https://www.neighborhoodatlas.[facility]/. Last address used for calculation Martin [...] on filedocumented in this encounter Care Teams Storage Brine Worker Relationship Specialty Start Date End Date Ruben Ohara MD PCP - General Family Medicine 05/30/14 documented as of this encounter
== END 2025-02-26 11:03 | disposition home or self-care (01) ==
LOC: NM 11:02
PROVIDERS: PCP Family Medicine; Visit Provider Family Medicine
DX: R07.9 Chest pain, unspecified (principal)
CPT/HCPCS: 78452; 93017; A9500